=== PATIENT | female | born 2000 | race African-American/Black ===

== ENCOUNTER 2023-11-04 15:01 | Emergency (ER) | payer MEDICAID ==
[~2023-11-04] VITALS: Ht 165.1 cm; Wt 61.2 kg
[2023-11-04 15:18] VITALS: BP 166/97; PULSE 75; TEMP 98.9; O2SAT 100
[2023-11-04] MEDS: AMOXICILLIN/POTASSIUM CLAVULANATE 875/125MG TAB PO ONE (17:15)
[2023-11-04] MEDS: HYDROCODONE/ACETAMINOPHEN 5/325MG TABLET PO ONE (17:15)
[2023-11-04] MEDS: KETOROLAC 30MG/ML VIAL IM ONE (17:15)
[2023-11-04 18:00] VITALS: RESP 19
[2023-11-04] MEDS: CLINDAMYCIN HCL 150MG CAPSULE PO ONE (18:15)
[2023-11-04] MEDS ORDERED: HYDR-4001 MT (18:46)
[2023-11-04] MEDS ORDERED: CLIN-194 MT (18:46)
[2023-11-04] MEDS ORDERED: IBUP-2029 MT (18:46)
== END 2023-11-04 19:26 | disposition home or self-care (01) ==
LOC: ER 15:01
DX: S02.609A Fracture of mandible, unspecified, initial encounter for closed fracture (principal); Y08.89XA Assault by other specified means, initial encounter; Y93.89 Activity, other specified; Y92.89 Other specified places as the place of occurrence of the external cause; Y99.8 Other external cause status
CPT/HCPCS: 81025; 70450; 70486; 72125; 96372; 99285; J1885; Z7610 ×2